=== PATIENT | female | born 1950 | race Caucasian/White ===

== ENCOUNTER 2021-09-20 01:32 | Emergency (ER) | payer MEDICARE, OTHER ==
[2021-09-20] MEDS ORDERED: QUEtiapine 100 MG Tab PO ONE (01:33)
[2021-09-20] MEDS ORDERED: Gabapentin 300 MG Cap PO ONE ×2 (01:33→02:49)
[2021-09-20] MEDS ORDERED: LORazepam 1 MG Tab PO ONE ×2 (01:33→02:48)
[2021-09-20] MEDS ORDERED: QUEtiapine 100 MG Tab ONE (03:10)
[2021-09-20 09:08] VITALS: BP 162/79; PULSE 77
[2021-09-20] MEDS ORDERED: QUEtiapine 100 MG Tab PO SCH (21:00)
== END 2021-09-20 03:25 | disposition home or self-care (01) ==
LOC: FB.ED 01:32
DX: F41.9 Anxiety disorder, unspecified (principal); G47.00 Insomnia, unspecified
CPT/HCPCS: 99283; A9270-GY

== ENCOUNTER 2021-09-20 19:23 | Emergency (ER) | payer MEDICARE, OTHER ==
[2021-09-20] MEDS ORDERED: Gabapentin 300 MG Cap PO ONE (19:44)
[2021-09-20] MEDS ORDERED: QUEtiapine 25 MG Tab PO ONE (19:45)
[2021-09-20] MEDS ORDERED: QUEtiapine 100 MG Tab ONE (19:59)
[2021-09-20] MEDS ORDERED: QUEtiapine 100 MG Tab PO ONE (20:00)
[2021-09-20 21:15] VITALS: BP 136/89; PULSE 89
== END 2021-09-20 20:10 | disposition home or self-care (01) ==
LOC: FB.ED 19:23
DX: G47.00 Insomnia, unspecified (principal); E78.00 Pure hypercholesterolemia, unspecified; I10 Essential (primary) hypertension; F41.9 Anxiety disorder, unspecified; Z79.899 Other long term (current) drug therapy; Z91.048 Other nonmedicinal substance allergy status
CPT/HCPCS: 99283; A9270